=== PATIENT | female | born 1930 | race African-American/Black ===

== ENCOUNTER 2018-05-11 14:06 | Inpatient (IN) | payer MEDICARE, MEDICAID ==
[~2018-05-11] VITALS: Ht 167.6 cm; Wt 61.7 kg
[2018-05-11] MEDS ORDERED: ONDANSETRON HCL 4MG/2ML INJ IV STA (19:38)
[2018-05-11 20:29] LABS: BASOPHILS % 0.7 % (0.0-2.0); EOSINOPHILS % 1.8 % (0.0-5.0); HEMATOCRIT. 38.4 % (36.0-48.0); HEMOGLOBIN. 12.8 g/dL (12.0-16.0); LYMPHOCYTES % 42.2 % (20.0-50.0); MEAN CORPUSCULAR VOLUME 92.7 fL (81.0-99.0); MEAN PLATELET VOLUME 9.4 fl (7.4-10.4); MONOCYTES % 10.7 % (2.0-8.0); NEUTROPHILS % 44.6 % (40.0-76.0); PLATELET 169 x1000/uL (130-400); RED BLOOD CELL COUNT 4.14 mill/uL (4.2-5.4); RED CELL DISTRIBUTION WIDTH 14.3 % (11.6-14.6)
[2018-05-11 20:33] LABS: CHLORIDE 107 mEq/L (98-107)
[2018-05-11 20:37] LABS: D-DIMER 1.44 mg/L FEU (<0.50); INR 1.1
[2018-05-11 21:17] LABS: CLARITY URINE CLEAR (CLEAR); COLOR URINE YELLOW (YELLOW); KETONES URINE NEGATIVE (NEGATIVE); LEUKOCYTE ESTERASE URINE 2+ (NEGATIVE); NITRITE URINE NEGATIVE (NEGATIVE); OCCULT BLOOD URINE NEGATIVE (NEGATIVE); PROTEIN URINE NEGATIVE (NEGATIVE); SPECIFIC GRAVITY URINE 1.008 (1.005-1.030); UROBILINOGEN URINE 0.2 E.U./dL (0.2-1.0)
[2018-05-11] MEDS ORDERED: LEVOFLOXACIN 500MG PREMIX 100 ML IV ONE (22:15)
[2018-05-11] MEDS ORDERED: METRONIDAZOLE 500 MG PREMIX 100 ML IV ONE (22:15)
[2018-05-12] VITALS (7 sets, daily range): BP systolic 139–164; BP diastolic 52–71
[2018-05-12] MEDS ORDERED: METR500T MT (03:46)
[2018-05-12] MEDS ORDERED: LEVO250T2 MT (03:46)
[2018-05-12] MEDS ORDERED: HYDR-4135 MT (03:48)
[2018-05-12] MEDS ORDERED: METF-414 MT (03:48)
[2018-05-12] MEDS ORDERED: OMEP20CA10 MT (03:48)
[2018-05-12] MEDS ORDERED: GABA-531 MT (03:48)
[2018-05-12] MEDS ORDERED: LOSA100T14 MT (03:48)
[2018-05-12] MEDS ORDERED: DEXT 5%/0.45% NACL KCL 20MEQ/L 1,000 ML IV SCH (05:15)
[2018-05-12] MEDS ORDERED: DEXTROSE 50% WATER 50ML SYRINGE IV PRN (05:15)
[2018-05-12] MEDS ORDERED: ONDANSETRON HCL 4MG/2ML INJ IV PRN (05:15)
[2018-05-12] MEDS: POTASSIUM CHLORIDE INJ 20 MEQ, MVI, ADULT NO.1 10 ML in DEXT 5%/0.45% NACL 1000ML 1,000 ML IV SCH ×3 (06:26)
[2018-05-12] MEDS: BLOOD SUGAR DIAGNOSTIC STRIP TEST SCH ×4 (06:27→21:30)
[2018-05-12] MEDS ORDERED: MEDICATION NOT ON FORMULARY EA (Hydralazine Hcl 1 TAB) MT SCH (09:00)
[2018-05-12] MEDS ORDERED: MEDICATION NOT ON FORMULARY EA (Losartan Potassium 1 TAB) MT SCH (09:00)
[2018-05-12] MEDS ORDERED: MEDICATION NOT ON FORMULARY EA (Metformin Hcl 1 TAB) MT SCH (09:00)
[2018-05-12] MEDS ORDERED: MEDICATION NOT ON FORMULARY EA (Gabapentin 1 CAP) MT SCH (09:00)
[2018-05-12] MEDS: LOSARTAN POTASSIUM 100 MG TABLET PO SCH (09:03)
[2018-05-12] MEDS: OMEPRAZOLE 20MG CAPSULE EXTENDED RELEASE PO SCH ×2 (09:03→18:20)
[2018-05-12] MEDS: METRONIDAZOLE 500MG TABLET PO SCH ×2 (09:04→21:50)
[2018-05-12] MEDS: METFORMIN HCL 500MG TABLET PO SCH ×2 (09:04→18:20)
[2018-05-12] MEDS: HYDRALAZINE HCL 50MG TABLET PO SCH ×2 (09:05→21:50)
[2018-05-12] MEDS: GABAPENTIN 300MG CAPSULE PO SCH ×2 (09:05→18:20)
[2018-05-12] MEDS: INSULIN LISPRO 100 UNITS/ML SUBCUT SCH ×4 (09:09→21:00)
[2018-05-12 11:19] LABS: BASOPHILS % 0.8 % (0.0-2.0); EOSINOPHILS % 1.5 % (0.0-5.0); HEMATOCRIT. 35.4 % (36.0-48.0); HEMOGLOBIN. 11.9 g/dL (12.0-16.0); LYMPHOCYTES % 33.2 % (20.0-50.0); MEAN CORPUSCULAR HEMOGLOBIN 30.9 pg (28.0-32.0); MEAN CORPUSCULAR VOLUME 91.8 fL (81.0-99.0); MEAN PLATELET VOLUME 9.3 fl (7.4-10.4); MONOCYTES % 14.2 % (2.0-8.0); NEUTROPHILS % 50.3 % (40.0-76.0); PLATELET 171 x1000/uL (130-400); RED BLOOD CELL COUNT 3.86 mill/uL (4.2-5.4); RED CELL DISTRIBUTION WIDTH 13.8 % (11.6-14.6)
[2018-05-12] MEDS: LEVOFLOXACIN 250MG TABLET PO SCH (11:20)
[2018-05-12 11:58] LABS: CHLORIDE 105 mEq/L (98-107)
[2018-05-12 12:10] LABS: LDL CHOLESTEROL 66 mg/dL (5-100)
[2018-05-12 12:12] LABS: HDL CHOLESTEROL 56 mg/dL (40-59)
[2018-05-12 12:14] LABS: TOTAL IRON BINDING CAPACITY 191 ug/dL (250-450)
[2018-05-12 12:16] LABS: T4 FREE 1.03 ng/dL (0.76-1.46)
[2018-05-13] VITALS: BP 155/51
[2018-05-13 04:00] VITALS: BP 146/51
[2018-05-13] MEDS ORDERED: DEXT 5%/0.45% NACL KCL 20MEQ/L 1,000 ML IV SCH (04:00)
[2018-05-13] MEDS: BLOOD SUGAR DIAGNOSTIC STRIP TEST SCH ×3 (07:20→17:25)
[2018-05-13] MEDS: INSULIN LISPRO 100 UNITS/ML SUBCUT SCH ×3 (07:50→17:25)
[2018-05-13 08:00] VITALS: BP 130/73
[2018-05-13] MEDS: METFORMIN HCL 500MG TABLET PO SCH ×2 (09:16→17:01)
[2018-05-13] MEDS: LOSARTAN POTASSIUM 100 MG TABLET PO SCH (09:16)
[2018-05-13] MEDS: METRONIDAZOLE 500MG TABLET PO SCH (09:16)
[2018-05-13] MEDS: HYDRALAZINE HCL 50MG TABLET PO SCH (09:16)
[2018-05-13] MEDS: GABAPENTIN 300MG CAPSULE PO SCH ×2 (09:17→17:01)
[2018-05-13] MEDS: POTASSIUM CHLORIDE INJ 20 MEQ, MVI, ADULT NO.1 10 ML in DEXT 5%/0.45% NACL 1000ML 1,000 ML IV SCH ×3 (09:17)
[2018-05-13] MEDS: OMEPRAZOLE 20MG CAPSULE EXTENDED RELEASE PO SCH ×2 (09:17→17:32)
[2018-05-13] MEDS: LEVOFLOXACIN 250MG TABLET PO SCH (10:38)
[2018-05-13 11:42] VITALS: BP 169/81
[2018-05-13 12:00] VITALS: BP 169/81
[2018-05-15 19:10] LABS: 25-HYDROXY VITAMIN D3 31 ng/mL (.)
== END 2018-05-13 18:05 | disposition home or self-care (01) | DRG 392 ==
LOC: ER 14:06 → 6EST 22:18 → EDBEDREQSVC 22:20 → EDBEDREQTM 22:20 → EDBEDREQ 22:20 → ENRESERV 22:53
PROVIDERS: ADMIT Internal Medicine; ATTEND Internal Medicine
DX: K52.9 Noninfective gastroenteritis and colitis, unspecified (principal); N39.0 Urinary tract infection, site not specified; E11.9 Type 2 diabetes mellitus without complications; I11.9 Hypertensive heart disease without heart failure; K80.20 Calculus of gallbladder without cholecystitis without obstruction; D18.03 Hemangioma of intra-abdominal structures; K76.9 Liver disease, unspecified; K42.9 Umbilical hernia without obstruction or gangrene; Z90.710 Acquired absence of both cervix and uterus; Z88.0 Allergy status to penicillin
CPT/HCPCS: 36415; 71045; 74176; 76700; 80061; 80076; 82105; 82306; 82962; 83036; 83540; 83550; 83605; 83880; 84439; 84443; 84481; 84484; 85379; 85651; 93005; 93971; 96365; 96368; 96375; 99285; J1815; J1956; J2405; J3480; J3490

== ENCOUNTER 2019-03-15 22:17 | Emergency (ER) | payer MEDICARE, MEDICAID ==
[~2019-03-15] VITALS: Ht 162.6 cm; Wt 63.0 kg
[~2019-03-15 22:17] MED LIST: GABA-531 MT; HYDR-4135 MT; LEVO250T2 MT; LOSA100T32 MT; METF-414 MT; METR500T MT; OMEP20CA5 MT
[2019-03-15] MEDS ORDERED: SILVER SULFADIAZINE 1% CREAM 50GM TOP STA (22:41)
[2019-03-15] MEDS ORDERED: ONDANSETRON 4MG ODT PO ONE (22:45)
[2019-03-15] MEDS ORDERED: HYDROCODONE/ACETAMINOPHEN 5/325MG TABLET PO ONE (22:45)
[2019-03-15] MEDS ORDERED: TETANUS, DIPHTHERIA, PERTUSSIS VAC/PF 0.5ML (>7YR OLD) IM ONE (22:45)
[2019-03-16 01:26] VITALS: BP 166/69
== END 2019-03-16 01:32 | disposition home or self-care (01) ==
LOC: ER 22:48
DX: T25.122A Burn of first degree of left foot, initial encounter (principal); T25.121A Burn of first degree of right foot, initial encounter; E11.9 Type 2 diabetes mellitus without complications; I10 Essential (primary) hypertension; F17.210 Nicotine dependence, cigarettes, uncomplicated; X12.XXXA Contact with other hot fluids, initial encounter; Y93.G3 Activity, cooking and baking; Y92.9 Unspecified place or not applicable; Z88.0 Allergy status to penicillin; Z90.710 Acquired absence of both cervix and uterus
CPT/HCPCS: 16000; 90471; 90715; 99284; Q0162